=== PATIENT | male | born 1950 | race Caucasian/White ===

== ENCOUNTER → 2021-02-07 10:45 | Outpatient (BNVA) | payer MEDICARE, SELFPAY | PROVIDERS: PCP Internal Medicine; Visit Provider Hospitalist | DX: J45.909 Unspecified asthma, uncomplicated (principal); J43.9 Emphysema, unspecified; R06.00 Dyspnea, unspecified; R09.89 Other specified symptoms and signs involving the circulatory and respiratory systems; Z85.118 Personal history of other malignant neoplasm of bronchus and lung; Z79.899 Other long term (current) drug therapy | CPT/HCPCS: 99202 ==

== ENCOUNTER 2021-03-07 09:48 | Outpatient (REF) | payer MEDICARE, SELFPAY ==
--- NOTE | 2021-03-07 | PFT_ITS ---
FLOWS: FEV1 108% of predicted at 3.26 L. FVC 105% of predicted at 4.39 L. FEV1 to FVC ratio of 0.74. No bronchodilator response. LUNG VOLUMES: Total lung capacity 97% of predicted at 6.68 L. Residual volume 95% of predicted at 2.33 L. Slow vital capacity 99% of predicted at 4.35 L. Expiratory reserve volume 42% of predicted at 0.51 L. Diffusion capacity is mildly decreased, diffusion capacity corrects to normal after adjustment for alveolar ventilation. IMPRESSION: No obstructive or restrictive ventilatory defect. No bronchodilator response. Decreased expiratory reserve volume suggests extrathoracic restriction likely secondary to abdominal obesity. Sameer Holliday MD AP/MODL / [id number]
== END 2021-03-07 09:49 | disposition home or self-care (01) ==
LOC: HO.RESP 09:48
PROVIDERS: PCP Internal Medicine; Visit Provider Hospitalist
DX: R06.00 Dyspnea, unspecified (principal)
CPT/HCPCS: 94060; 94727; 94729

== ENCOUNTER → 2021-03-21 10:12 | Outpatient (BNVA) | payer MEDICARE, SELFPAY | PROVIDERS: PCP Internal Medicine; Visit Provider Hospitalist | DX: J45.909 Unspecified asthma, uncomplicated (principal); J43.9 Emphysema, unspecified; R06.00 Dyspnea, unspecified; R09.89 Other specified symptoms and signs involving the circulatory and respiratory systems | CPT/HCPCS: 99212 ==

== ENCOUNTER → 2022-02-07 10:42 | Outpatient (BNVA) | payer MEDICARE, SELFPAY | PROVIDERS: PCP Family Medicine; Visit Provider Hospitalist | DX: J45.909 Unspecified asthma, uncomplicated (principal); J43.9 Emphysema, unspecified; R06.00 Dyspnea, unspecified; R09.89 Other specified symptoms and signs involving the circulatory and respiratory systems | CPT/HCPCS: 99212 ==

== ENCOUNTER 2023-02-12 10:35 | Outpatient (REF) | payer MEDICARE, SELFPAY ==
--- NOTE | 2023-02-12 11:46 | PFT_ITS ---
INDICATIONS: Emphysema. SPIROMETRY: FEV1 to FVC of 68% with an FEV1 of 3.06 L, which is 106% predicted and an FVC of 4.51 L, which is 101% predicted. No significant response to bronchodilators noted. Maximum voluntary ventilation is 66% predicted. LUNG VOLUMES: Total lung capacity 86% predicted with an expiratory reserve volume of 84% predicted. DIFFUSION CAPACITY: DLCO of 79% predicted. COMPARISONS: None. INTERPRETATION: There is an obstructive ventilatory defect, consistent of mild COPD. No significant response to bronchodilators noted. Mild decrease in maximum voluntary ventilation secondary to likely deconditioning. Lungs volumes are within normal limits. The patient also has a mild diffusion impairment, clinical correlation warranted. Denzel Alvarez MD MR/MODL / [id number]
== END 2023-02-12 10:36 | disposition home or self-care (01) ==
LOC: HO.RESP 10:35
PROVIDERS: PCP Family Medicine; Visit Provider Hospitalist
DX: J43.9 Emphysema, unspecified (principal)
CPT/HCPCS: 94010; 94727; 94729

== ENCOUNTER → 2023-02-12 11:46 | Outpatient (BNV) | payer MEDICARE, SELFPAY | PROVIDERS: PCP Family Medicine; Visit Provider Hospitalist | DX: J43.9 Emphysema, unspecified (principal) | CPT/HCPCS: 94060; 94727; 94729 ==

== ENCOUNTER 2023-02-20 10:52 | Outpatient (AMB) | payer MEDICARE, SELFPAY ==
[2023-02-20 11:02] VITALS: BP 118/70; PULSE 64; O2SAT 95; BMI 30.9
--- NOTE | 2023-02-20 11:02 | A.OFFVIS_ITS ---
Intake Vital Signs 02/20/23 11:02 Height 5 ft 9 in Weight 209 lb 7.026 oz BMI 30.9 BP 118/70 Blood Pressure Location Lt brachial Position Sitting Pulse 64 Pulse Source Pulse Oximeter Pulse Oximetry (%) 95 Oxygen Delivery Method Room Air Intake Visit Reasons: COPD Buffet Attendant Required: No Allergies No Known Allergies Allergy (Verified 02/20/23 11:05) HPI HPI Comments History of Present Illness Details The patient is a 72-year-old gentleman with a known history of lung cancer status post right lower lobe resection back in 2019. the patient had surgery with curative intent. He is followed closely by [facility] thoracic surgery. In the meantime he has developed worsening dyspnea on exertion. Moderate severity. He does uses rescue inhaler with good effect. He does use it a couple times a day. Initially, he was placed on Anoro which she felt was helpful. But, then it seemed to stop helping and Started to feel worse on the medication. So therefore he stopped it. His last pulmonary function studies were from November of 2018. I personally reviewed them. It appears that he has a reversible obstruction with significant response to bronchodilators and significant small airways disease suggesting of hyperreactive airways in a diagnosis of asthma. In addition to that I did review his CT scan of the chest last done back in June 2020 demonstrating paraseptal emphysema in the post operative changes. On examination the patient did have some crackles actually on the left side. We did go briefly on walking oximetry. The patient was able to maintain a Pulse ox in the low 90s. Heart rate was stable. The patient did not qualify for oxygen. 02/07/2022 the patient is here for a pul monary follow-up visit. He continues to do well. Does complaint of dyspnea on exertion. Had been on Trelegy for little bit of time but did not see any significant improvement. He she has been using his rescue inhaler as needed. Sometimes he needs it once a day and sometimes not at all. He is comfortable right now using his inhaler. Denies any palpitations or tremulousness. In addition to that he did have a CT scan of the chest last back in June of 2021 at [facility]. We did review the CT scan. He does have some reticular changes in some emphysema moderate amount. Likely related to smoking-related lung disease. He quit smoking many years ago although he was smoking about 5 packs a day at his worse. The patient had a CT scan of the chest again demonstrating stable 4 mm pulmonary nodule right on the fissure on the right side. He did have a right lower lobe lobectomy and his lobes expanded well feeling in the space well. No new findings noted. He is scheduled to have a repeat CT scan June of 2022 and will follow-up with thoracic surgery. Therefore he will follow-up with me sometime in the fall 2022 will do a pulmonary function study to see if he needs additional respiratory medications at that time. 02/20/2023 the patient is here for a pul monary follow-up visit. Overall doing well. Does complaint of dyspnea on exertion mild in severity also complains of shortness of breath when leaning forward. Denies any cough or wheezing. Does have some chest congestion at times. He has a rescue inhaler but he has not had to use it. We did review his PFTs that he just had demonstrating mild COPD but otherwise lung capacity is good in view of having had a lung resection for lung cancer in addition to the fact that he smoked a significant amount for many years. He does have emphysema on the CT scan. We did review the CT scan that he had back in June 2022 and we also compared to the CT scan that he had back in June 2021. The emphysema is moderate and mainly subpleural paraseptal. He has pulmonary nodule in the right hemithorax that is monitored and has not changed. He also has some evidence of interstitial disease some scarring primarily at the lower lung zones left more than right. [facility] Medical History (Updated 02/20/23 @ 19:38 by Denzel Alvarez MD) Chest crackles Dyspnea Lung cancer Emphysema lung Asthma Social History (Updated 03/21/21 @ 10:19 by USHA Alvarez) Patient Tobacco Use Status: Former Tobacco user Tobacco use type: Cigarette Years Smoked: 30 years Review of Systems Const Denies night sweats ENT Denies change in voice, Denies lip swelling, Denies mouth pain, Reports nasal congestion, Reports nasal discharge and Denies tongue swelling Card Denies chest pain and Reports dyspnea on exertion Resp Reports cough and Reports dyspnea on exertion GI Denies abdominal pain Musc Denies no additional complaints Neuro Denies Neuro-related abnormal movements Psych Denies no additional complaints Timothy/Lymph Denies easy bleeding and Denies lymphadenopathy Aller/Immun Denies lip swelling and Denies tongue swelling Physical Exam Vital Signs: Last Vital Signs Pulse 64 02/20/23 11:02 BP 118/70 02/20/23 11:02 Pulse Ox 95 02/20/23 11:02 Oxygen Delivery Method Room Air 02/20/23 11:02 BMI result Body Mass Index 30.9 Const General: alert Neck Neck: Yes normal visual inspection, Yes full ROM and Yes no lymphadenopathy Chest Chest palpation & inspection: normal inspection of the chest Resp Effort & Inspection: normal respiratory effort Auscultation: crackles on the left at the base and diminished lung sounds Cardio Rate: regular rate Rhythm: regular rhythm Heart sounds: S1 normal heart sound present and S2 normal heart sound present GI Palpation (GI): Soft to palpation and nontender Auscultation: normal bowel sounds Skin General skin exam: rashes and/or lesions noted Assessment & Plan Assessment & Plan (1) Emphysema lung: Comment: Mild COPD Code(s): J43.9 - Emphysema, unspecified Qualifiers: Emphysema type: centrilobular Qualified Code(s): J43.2 - Centrilobular emphysema (2) Dyspnea: Code(s): R06.00 - Dyspnea, unspecified Qualifiers: Dyspnea type: dyspnea on exertion Qualified Code(s): R06.09 - Other forms of dyspnea Plan: Multifactorial (3) Chest crackles: Comment: minimal basilar fibrotic changes, stable Code(s): R09.89 - Other specified symptoms and signs involving the circulatory and respiratory systems Plan ALONDRA as needed weight management and exercise regimen repeat CT scan of the chest June 2023 [place] [place] lung cancer follow up [place] [facility] [place]/U 1 yr Coding Level of Care Code Est Pt Level 4 (77857) Diagnoses Centrilobular emphysema J43.2 Emphysema type: centrilobular Dyspnea on exertion R06.09 Dyspnea type: dyspnea on exertion Chest crackles R09.89 Time Spent (min) 17
== END 2023-02-20 11:31 | disposition home or self-care (01) ==
PROVIDERS: PCP Family Medicine; Visit Provider Hospitalist
DX: J43.2 Centrilobular emphysema (principal); R06.09 Other forms of dyspnea; R09.89 Other specified symptoms and signs involving the circulatory and respiratory systems
CPT/HCPCS: 99214

== ENCOUNTER → 2023-02-20 10:52 | Outpatient (BNVA) | payer MEDICARE, SELFPAY | PROVIDERS: PCP Family Medicine; Visit Provider Hospitalist | DX: J43.2 Centrilobular emphysema (principal); R06.09 Other forms of dyspnea; R09.89 Other specified symptoms and signs involving the circulatory and respiratory systems | CPT/HCPCS: 99212 ==

== ENCOUNTER 2024-06-05 13:36 | Outpatient (AMB) | payer MEDICARE, SELFPAY ==
[2024-06-05 13:40] VITALS: BP 106/68; PULSE 68; O2SAT 96; BMI 31.4
--- NOTE | 2024-06-05 13:40 | MHC.OFFVIS ---
Vital Signs 06/05/24 13:40 Height 5 ft 9 in Weight 212 lb 11.937 oz BMI 31.4 BP 106/68 Blood Pressure Location Rt brachial Position Sitting Pulse 68 Pulse Source Pulse Oximeter Pulse Oximetry (%) 96 Oxygen Delivery Method Room Air Intake Visit Reasons: asthma Allergies No Known Allergies Allergy (Verified 06/05/24 13:45) HPI Comments Details: The patient is a 74-year-old gentleman with a known history of lung cancer status post right lower lobe resection back in 2019. the patient had surgery with curative intent. He is followed closely by [facility] thoracic surgery. In the meantime he has developed worsening dyspnea on exertion. Moderate severity. He does uses rescue inhaler with good effect. He does use it a couple times a day. Initially, he was placed on Anoro which she felt was helpful. But, then it seemed to stop helping and Started to feel worse on the medication. So therefore he stopped it. His last pulmonary function studies were from November of 2018. I personally reviewed them. It appears that he has a reversible obstruction with significant response to bronchodilators and significant small airways disease suggesting of hyperreactive airways in a diagnosis of asthma. In addition to that I did review his CT scan of the chest last done back in June 2020 demonstrating paraseptal emphysema in the postoperative changes. On examination the patient did have some crackles actually on the left side. We did go briefly on walking oximetry. The patient was able to maintain a Pulse ox in the low 90s. Heart rate was stable. The patient did not qualify for oxygen. 02/07/2022 the patient is here for a pulmonary follow-up visit. He continues to do well. Does complaint of dyspnea on exertion. Had been on Trelegy for little bit of time but did not see any significant improvement. He she has been using his rescue inhaler as needed. Sometimes he needs it once a day and sometimes not at all. He is comfortable right now using his inhaler. Denies any palpitations or tremulousness. In addition to that he did have a CT scan of the chest last back in June of 2021 at [facility]. We did review the CT scan. He does have some reticular changes in some emphysema moderate amount. Likely related to smoking-related lung disease. He quit smoking many years ago although he was smoking about 5 packs a day at his worse. The patient had a CT scan of the chest again demonstrating stable 4 mm pulmonary nodule right on the fissure on the right side. He did have a right lower lobe lobectomy and his lobes expanded well feeling in the space well. No new findings noted. He is scheduled to have a repeat CT scan June of 2022 and will follow-up with thoracic surgery. Therefore he will follow-up with me sometime in the fall of 2022 will do a pulmonary function study to see if he needs additional respiratory medications at that time. 02/20/2023 the patient is here for a pulmonary follow-up visit. Overall doing well. Does complaint of dyspnea on exertion mild in severity also complains of shortness of breath when leaning forward. Denies any cough or wheezing. Does have some chest congestion at times. He has a rescue inhaler but he has not had to use it. We did review his PFTs that he just had demonstrating mild COPD but otherwise lung capacity is good in view of having had a lung resection for lung cancer in addition to the fact that he smoked a significant amount for many years. He does have emphysema on the CT scan. We did review the CT scan that he had back in June 2022 and we also compared to the CT scan that he had back in June 2021. The emphysema is moderate and mainly subpleural paraseptal. He has pulmonary nodule in the right hemithorax that is monitored and has not changed. He also has some evidence of interstitial disease some scarring primarily at the lower lung zones left more than right. 06/05/2024 the patient is here for a pulmonary follow-up visit. Overall he is doing okay. He does complaint of productive cough chest congestion at times. [id number] severity. In addition to this he did developed a respiratory illness sometime early this year. He was given a course of antibiotics and prednisone. After that he felt a lot better. Now he is doing much better. He is concerned though that his symptoms are going to reoccur. Also he is complaining about daytime drowsiness. He does have a history sleep apnea although he did not uses CPAP back at that time. Patient subsequently wanted to consider a hypoglossal nerve stimulator so he started the process. But was felt not to be the best option for the patient. He does have underlying cardiovascular risk factors and significant daytime drowsiness with an [place] score of 11/24. Therefore, I did request her sleep study and I did review with the patient demonstrating moderate to severe sleep apnea. Also a REM related sleep disorder with his apneas significantly worsened during REM. The patient needs to start CPAP at this time. Will go ahead and order the machine for him to start using. In the meantime will also start him on a maintenance inhaler to help with the chronic bronchitis. If the inhaler does not work he can always call. [facility] Medical History (Updated 06/05/24 @ 22:02 by Denzel Alvarez MD) MOHIT (obstructive sleep apnea) Chest crackles Dyspnea Lung cancer Emphysema lung Asthma Social History Patient Tobacco Use Status: Former Tobacco user Tobacco use type: Cigarette Years Smoked: 30 years Review of Systems Const Reports daytime sleepiness, Reports difficulty sleeping, Denies night sweats and Reports snoring ENT Denies change in voice, Denies lip swelling, Denies mouth pain, Reports nasal congestion, Reports nasal discharge and Denies tongue swelling Card Denies chest pain and Reports dyspnea on exertion Resp Reports chest congestion, Reports cough, Reports dyspnea on exertion, Reports snoring and Reports wheezing GI Denies abdominal pain Musc Denies no additional complaints Neuro Denies Neuro-related abnormal movements Psych Denies no additional complaints Timothy/Lymph Denies easy bleeding and Denies lymphadenopathy Aller/Immun Denies lip swelling, Denies tongue swelling and Reports wheezing Physical Exam Vital Signs: Last Vital Signs Pulse 68 06/05/24 13:40 BP 106/68 06/05/24 13:40 Pulse Ox 96 06/05/24 13:40 Oxygen Delivery Method Room Air 06/05/24 13:40 BMI result Body Mass Index 31.4 Const General: alert Neck Neck: Yes normal visual inspection, Yes full ROM and Yes no lymphadenopathy Chest Chest palpation & inspection: normal inspection of the chest Resp Effort & Inspection: normal respiratory effort Auscultation: diminished lung sounds Cardio Rate: regular rate Rhythm: regular rhythm Heart sounds: S1 normal heart sound present and S2 normal heart sound present GI Palpation (GI): Soft to palpation and nontender Auscultation: normal bowel sounds Skin General skin exam: rashes and/or lesions noted Assessment & Plan Assessment & Plan (1) Emphysema lung: Comment: Mild COPD Code(s): J43.9 - Emphysema, unspecified Category: Medical Qualifiers: Emphysema type: centrilobular Qualified Code(s): J43.2 - Centrilobular emphysema (2) Dyspnea: Code(s): R06.00 - Dyspnea, unspecified Category: Medical Qualifiers: Dyspnea type: dyspnea on exertion Qualified Code(s): R06.09 - Other forms of dyspnea Plan: Multifactorial (3) MOHIT (obstructive sleep apnea): Code(s): G47.33 - Obstructive sleep apnea (adult) (pediatric) Category: Medical Plan ALONDRA as needed Start Symbicort start APAP weight management and exercise regimen repeat CT scan of the chest June 2024([facility] [place] lung cancer follow up at [facility] [place] F/U 3-4 months Medications: New budesonide-formoterol 160-4.5 mcg/actuation (Symbicort) 2 puffs inhalation BID 10.2 grams 11RF 30 days J44.89 - Other specified chronic obstructive pulmonary disease Coding Level of Care Code Est Pt Level 4 (73156) Diagnoses Centrilobular emphysema J43.2 Emphysema type: centrilobular Dyspnea on exertion R06.09 Dyspnea type: dyspnea on exertion MOHIT (obstructive sleep apnea) G47.33 Time Spent (min) 18
--- OUTSIDE RECORDS SUMMARY | 2024-06-05 13:44 | XMS_ITS | Clinical Summary ---
Author Organization [facility] Address [address] [facility] [address] [place] [address] Phone Care Team Providers Care Sow Farm Manager Name Role Phone Teagan Keating MD Primary Care Provider [phone] Allergies No known active allergies Medications omega-3 (FISH OIL) 1000 MG capsule Take 1,000 mg by mouth 1 (one) time each day 03/27/2017 Active Thiamine HCl (Vitamin B1) 100 MG tablet Take 1 tablet by mouth 1 (one) time each day 10/27/2005 Active tiZANidine (ZANAFLEX) 4 MG tablet Take 4 mg by mouth every night 11/12/2020 Active docusate sodium (COLACE) 100 MG capsule Take 100 mg by mouth in the morning and 100 mg in the evening. 05/15/2018 Active aspirin (ST LENA) 81 MG EC tablet Take 81 mg by mouth 1 (one) time each day 03/27/2017 Active testosterone (ANDROGEL) 50 MG/5GM (1%) gel Place on the skin daily Active potassium chloride (MICRO-K) 10 MEQ CR capsule Take 10 mEq by mouth 1 (one) time each day 07/20/2021 Active albuterol HFA (PROVENTIL HFA;VENTOLIN HFA) 108 (90 Base) MCG/ACT inhaler Inhale 2 puffs every 6 (six) hours if needed 05/14/2020 Active buPROPion SR (WELLBUTRIN SR) 150 MG 12 hr tablet Take 150 mg by mouth in the morning and 150 mg in the evening. Active atorvastatin (LIPITOR) 40 MG tablet Take 40 mg by mouth 1 (one) time each day 10/05/2020 Active amLODIPine (NORVASC) 5 MG tablet Take 5 mg by mouth in the morning and 5 mg in the evening. 10/05/2020 Active chlorthalidone 25 MG tablet Take 25 mg by mouth 1 (one) time each day 25 mg on even days & 12.5 mg on odd days 07/20/2021 Active metoprolol succinate XL (TOPROL-XL) 100 MG 24 hr tablet Take 100 mg by mouth in the morning. Active tadalafil (CIALIS) 5 MG tablet Take 5 mg by mouth 1 (one) time each day 11/15/2021 Active alfuzosin (UROXATRAL) 10 MG 24 hr tablet Take 10 mg by mouth 1 (one) time each day 11/15/2021 Active Active Problems Problem Noted Date Diagnosed Date Chronic kidney disease stage 3 02/15/2022 Coronary arteriosclerosis 02/15/2022 Gout, not otherwise specified 02/15/2022 Hypertension 02/15/2022 Obstructive sleep apnea syndrome 02/15/2022 Chronic obstructive pulmonary disease 02/15/2022 Dyslipidemia 02/15/2022 Squamous cell carcinoma of right lung 07/24/2018 Family History Medical History Relation Comments Depression Father Hyperlipidemia Father Stroke Father Cancer Mother Relation Status Comments Father Mother Social History Tobacco Use Types Packs/Day Years Used Date Smoking Tobacco: Never Smokeless Tobacco: Never Tobacco Cessation:Counseling Given: Not Answered Alcohol Use Standard Drinks/Week Comments Yes 0 (1 standard drink = 0.6 oz pur e alcohol) occasionally Sex and Gender Information Value Date Recorded Sex Assigned at Not on file Legal Sex Male 3:40 PM EDT Gender Identity Not on file Sexual Orientation Not on file Last Filed Vital Signs Vital Sign Reading Time Taken Comments Blood Pressure 188/76 02/19/2023 10:56 AM EDT Pulse 62 02/19/2023 10:56 AM EDT Temperature - - Respiratory Rate - - Oxygen Saturation 94% 02/19/2023 10:56 AM EDT Inhaled Oxygen Concentration - - Weight 93.9 kg (207 lb) 02/19/2023 10:56 AM EDT Height 176.5 cm (5' 9.5 ) 02/19/2023 10:56 AM ED T Body Mass Index 30.13 02/19/2023 10:56 AM EDT Plan of Treatment Health Maintenance Due Date Last Done Comments Pneumococcal Vaccine: 65+ Ye ars (2 of 2 - PPSV23 or PCV20) 03/19/2019 01/22/2019 Influenza Vaccine (#1) 2023 Hepatitis B Vaccine Aged Out No longe r eligible based on patient's age to complete this topic Insurance [facility] P[facility] BLUE([id number]) [facility] P[facility] BLUE([id number]) Care Teams Sow Farm Manager Relationship Specialty Start Date End Date Teagan Keating MD [address] [place] [id number] PCP - General Family Medicine 11/23/21
--- OUTSIDE RECORDS SUMMARY | 2024-06-05 13:44 | XMS_ITS | Clinical Summary ---
Author Organization [facility] Address [phone] [facility] [place] [address] Care Team Providers Care Budget Consultant Name Role Phone Delonte Estevez MD Primary Care Provider Unavailable Philip Hernández MD Unavailable Tonya Finch MD Unavailable Allergies No known active allergies Medications Medication Sig Dispensed Refills Start Date End Date Status metoprolol succinate (TOPROL-XL) 100 MG 24 hr tablet Take 100 mg by mouth daily. Active amLODIPine (NORVASC) 5 MG tablet Take 5 mg by mouth daily. Active simvastatin (ZOCOR) 80 MG tablet Take 80 mg by mouth nightly at bedtime. Active buPROPion (WELLBUTRIN SR) 150 MG SR 12 hr tablet Take 150 mg by mouth 2 (two) times a day. Active aspirin 81 mg chewable tablet Take 81 mg by mouth daily. Active albuterol 90 mcg/actuation inhaler Inhale 2 puffs into the lungs every 6 (six) hours as needed for wheezing. Active polyethylene glycol (MIRALAX) 17 gram/dose powder Take 17 g by mouth daily. Active coenzyme Q10 200 mg capsule Take 200 mg by mouth daily. Active B-complex with vitamin C Cap Take 1 capsule by mouth daily. Active testosterone (TESTIM) 50 mg/5 gram (1 %) transdermal gel tube Place 50 mg of testosterone onto the skin daily. Active Active Problems Problem Noted Date Diagnosed Date Squamous cell carcinoma of right lung 07/24/2018 Other emphysema 07/24/2018 Family History Medical History Relation Comments Diabetes Brother Heart disease Father Stroke Father Breast cancer Mother Lung cancer Mother Relation Status Comments Brother Alive Father Mother Social History Tobacco Use Types Packs/Day Years Used Date Smoking Tobacco: Former Cigarettes 3 10 0 04/25/1975 - 04/25/1985 Smokeless Tobacco: Former Snuff Alcohol Use Standard Drinks/Week Comments Yes 1 (1 standard drink = 0.6 oz pur e alcohol) Social Education Answer Date Recorded Are you interested in more education? Not on sonya e 09/03/2022 Are you concerned about learning? Not on file 09/03/2022 No 09/03/2022 No 09/03/2022 Digital Access Answer Date Recorded No 09/17/2022 No 09/17/2022 No 09/17/2022 Reliable internet access at home? Not on file 09/17/2022 Device with a working camera? Not on file Sex and Gender Information Value Date Recorded Sex Assigned at Not on file Gender Identity Not on file Sexual Orientation Not on file Last Filed Vital Signs Vital Sign Reading Time Taken Comments Blood Pressure 106/83 07/24/2018 2:00 PM EDT Pulse 66 07/24/2018 2:00 PM EDT Temperature 36.9 ??C (98.5 ??F) 07/24/2018 2:00 PM ED T Respiratory Rate 17 07/24/2018 2:00 PM EDT Oxygen Saturation 93% 07/24/2018 2:00 PM EDT Inhaled Oxygen Concentration - - Weight 93.1 kg (205 lb 4 oz) 07/24/2018 2:00 PM EDT Height 173.5 cm (5' 8.31 ) 07/24/2018 2:00 PM ED T DFCI Body Mass Index 30.93 07/24/2018 2:00 PM EDT Plan of Treatment Health Maintenance Due Date Last Done Comments Adult Td,Tdap Booster 1948 LIPID PANEL 1948 DEPRESSION SCREENING 1960 SMOKING Hx and SMOKELESS TOBACCO SCREENING 1961 HEPATITIS B SCREENING 1966 HEPATITIS C SCREENING 1966 COLOGUARD 1993 COLONOSCOPY 1993 COLORECTAL CANCER SCREENING 1993 FIT TEST 1993 FOBT 1993 SIGMOIDOSCOPY 1993 VIRTUAL COLONOSCOPY 1993 ZOSTER VACCINES (1 of 2) 06/12/2017 04/17/2017 PNEUMOCOCCAL VACCINES (50+ years) (2 of 2 - PPSV23) 03/19/2019 01/22/2019 RSV VACCINE (1 - 1-dose 75+ series) 2023 INFLUENZA VACCINE (#1) 2023 9, 04/17/2017, 04/03/2016, Additional history exists COVID-19 VACCINE (3 - season) 2023 06/04/2020, 05/14/2020 HEPATITIS A VACCINES Aged Out No long er eligible based on patient's age to complete this topic HEPATITIS B VACCINES Aged Out No long er eligible based on patient's age to complete this topic HIB VACCINES Aged Out No longer eligi ble based on patient's age to complete this topic MENINGOCOCCAL VACCINES (ACWY) Aged Out No longer eligible based on patient's age to complete this topic Medical Devices Not on file Care Teams Budget Consultant Relationship Specialty Start Date End Date Delonte Estevez MD PCP - General Internal Medicine 07/17/18 Philip Hernández MD [address] [place] [address] [email or web address] 07/24/18 Tonya Finch MD [address] [place] [address] Thoracic Surgery 07/24/18 Additional Source Comments The information contained in this document represents components of the legal health record. It is not the complete legal health record.[facility]
--- OUTSIDE RECORDS SUMMARY | 2024-06-05 13:44 | XMS_ITS | Encounter Summary ---
Author Organization [facility], Address [address] [place] [address] Phone Care Team Providers Care Spiritual Advisor Name Role Phone Teagan Keating MD Primary Care Provider [phone] Encounter Details Date Type Department Care Team (Late st Contact Info) Description 11/23/2021 Documentation Only [facility], [address] [place] [address] Teagan Keating MD [address] [place] [address] Social History Tobacco Use Types Packs/Day Years Used Date Smoking Tobacco: Never Assessed Sex and Gender Information Value Date Recorded Sex Assigned at Not on file Legal Sex Male 3:40 PM EDT Gender Identity Not on file Sexual Orientation Not on file documented as of this encounter Plan of Treatment Not on file documented as of this encounter Visit Diagnoses Not on filedocumented in this encounter Care Teams Spiritual Advisor Relationship Specialty Start Date End Date Teagan Keating MD [address] [place] [address] PCP - General Family Medicine 11/23/21 documented as of this encounter
== END 2024-06-05 14:25 | disposition home or self-care (01) ==
PROVIDERS: PCP Family Medicine; Visit Provider Hospitalist
DX: J43.2 Centrilobular emphysema (principal); R06.09 Other forms of dyspnea; G47.33 Obstructive sleep apnea (adult) (pediatric)
CPT/HCPCS: 99214

== ENCOUNTER → 2024-06-05 13:36 | Outpatient (BNVA) | payer MEDICARE, SELFPAY | PROVIDERS: PCP Family Medicine; Visit Provider Hospitalist | DX: J43.2 Centrilobular emphysema (principal); R06.09 Other forms of dyspnea; G47.33 Obstructive sleep apnea (adult) (pediatric) | CPT/HCPCS: 99212 ==

== ENCOUNTER 2024-09-29 13:49 | Outpatient (AMB) | payer MEDICARE, SELFPAY ==
--- NOTE | 2024-09-29 13:50 | MHC.OFFVIS ---
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 the patient had surgery with curative intent. He is followed closely by [facility] thoracic surgery. In the meantime he has developed worsening dyspnea on exertion. Moderate severity. He does uses rescue inhaler with good effect. He does use it a couple times a day. Initially, he was placed on Anoro which she felt was helpful. But, then it seemed to stop helping and Started to feel worse on the medication. So therefore he stopped it. His last pulmonary function studies were from November of 2018. I personally reviewed them. It appears that he has a reversible obstruction with significant response to bronchodilators and significant small airways disease suggesting of hyperreactive airways in a diagnosis of asthma. In addition to that I did review his CT scan of the chest last done back in June 2020 demonstrating paraseptal emphysema in the postoperative changes. On examination the patient did have some crackles actually on the left side. We did go briefly on walking oximetry. The patient was able to maintain a Pulse ox in the low 90s. Heart rate was stable. The patient did not qualify for oxygen. 02/07/2022 the patient is here for a pulmonary follow-up visit. He continues to do well. Does complaint of dyspnea on exertion. Had been on Trelegy for little bit of time but did not see any significant improvement. He she has been using his rescue inhaler as needed. Sometimes he needs it once a day and sometimes not at all. He is comfortable right now using his inhaler. Denies any palpitations or tremulousness. In addition to that he did have a CT scan of the chest last back in June of 2021 at [facility]. We did review the CT scan. He does have some reticular changes in some emphysema moderate amount. Likely related to smoking-related lung disease. He quit smoking many years ago although he was smoking about 5 packs a day at his worse. The patient had a CT scan of the chest again demonstrating stable 4 mm pulmonary nodule right on the fissure on the right side. He did have a right lower lobe lobectomy and his lobes expanded well feeling in the space well. No new findings noted. He is scheduled to have a repeat CT scan June of 2022 and will follow-up with thoracic surgery. Therefore he will follow-up with me sometime in the fall of 2022 will do a pulmonary function study to see if he needs additional respiratory medications at that time. 02/20/2023 the patient is here for a pulmonary follow-up visit. Overall doing well. Does complaint of dyspnea on exertion mild in severity also complains of shortness of breath when leaning forward. Denies any cough or wheezing. Does have some chest congestion at times. He has a rescue inhaler but he has not had to use it. We did review his PFTs that he just had demonstrating mild COPD but otherwise lung capacity is good in view of having had a lung resection for lung cancer in addition to the fact that he smoked a significant amount for many years. He does have emphysema on the CT scan. We did review the CT scan that he had back in June 2022 and we also compared to the CT scan that he had back in June 2021. The emphysema is moderate and mainly subpleural paraseptal. He has pulmonary nodule in the right hemithorax that is monitored and has not changed. He also has some evidence of interstitial disease some scarring primarily at the lower lung zones left more than right. 06/05/2024 the patient is here for a pulmonary follow-up visit. Overall he is doing okay. He does complaint of productive cough chest congestion at times. [id number] severity. In addition to this he did developed a respiratory illness sometime early this year. He was given a course of antibiotics and prednisone. After that he felt a lot better. Now he is doing much better. He is concerned though that his symptoms are going to reoccur. Also he is complaining about daytime drowsiness. He does have a history sleep apnea although he did not uses CPAP back at that time. Patient subsequently wanted to consider a hypoglossal nerve stimulator so he started the process. But was felt not to be the best option for the patient. He does have underlying cardiovascular risk factors and significant daytime drowsiness with an Rimrock score of 11/24. Therefore, I did request her sleep study and I did review with the patient demonstrating moderate to severe sleep apnea. Also a REM related sleep disorder with his apneas significantly worsened during REM. The patient needs to start CPAP at this time. Will go ahead and order the machine for him to start using. In the meantime will also start him on a maintenance inhaler to help with the chronic bronchitis. If the inhaler does not work he can always call. 09/29/2024 the patient is here for pulmonary follow-up visit. Overall he is doing well. He has been using the CPAP and has been affecting beneficial. He does try to use it more than 4 hours a night. Sometimes he does have to get up because of his back aching has to go to the recliner and he sometimes stops taking it then. But he has been noticing that he has been helping him a significant amount. His AHI is down to 4.6 which is still lightly elevated. His average pressure is 14. Therefore, will going to go ahead and adjust his machine to go up to 16 2 8-18. Also adjust the humidity. He was having some issues with air leakage but once he change the mask back to the F 40 large he has been doing a lot better. He will continue it for now. From a respiratory status he seems to be doing better with the Symbicort and the albuterol. His cough congestion is improved. And also the patient did have a CT scan of the chest sometime in 07/10/2024 at [facility] with no evidence of any recurrence cancer which is reassuring. Overall the patient is doing well he also had recently a cardiac evaluation. He is having issues with his blood pressure is going a little bit low. 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 He has also been losing weight on Zepbound. [facility] Medical History (Updated 06/05/24 @ 22:02 by Denzel Alvarez MD) MOHIT (obstructive sleep apnea) Chest crackles Dyspnea Lung cancer Emphysema lung Asthma Social History Patient Tobacco Use Status: Former Tobacco user Tobacco use type: Cigarette Years Smoked: 30 years Review of Systems Const Reports difficulty sleeping and Denies night sweats ENT Denies change in voice, Denies lip swelling, Denies mouth pain, Reports nasal congestion, Reports nasal discharge and Denies tongue swelling Card Denies chest pain and Reports dyspnea on exertion Resp Denies chest congestion, Denies cough, Reports dyspnea on exertion and Denies wheezing GI Denies abdominal pain Musc Denies no additional complaints Neuro Denies Neuro-related abnormal movements Psych Denies no additional complaints Timothy/Lymph Denies easy bleeding and Denies lymphadenopathy Aller/Immun Denies lip swelling, Denies tongue swelling and Denies wheezing Physical Exam Vital Signs: Last Vital Signs Pulse 77 09/29/24 13:51 BP 100/52 L 09/29/24 13:51 Pulse Ox 97 09/29/24 13:51 Oxygen Delivery Method Room Air 09/29/24 13:51 BMI result Body Mass Index 28.3 Const General: alert Neck Neck: Yes normal visual inspection, Yes full ROM and Yes no lymphadenopathy Chest Chest palpation & inspection: normal inspection of the chest Resp Effort & Inspection: normal respiratory effort Auscultation: clear to auscultation bilaterally Cardio Rate: regular rate Rhythm: regular rhythm Heart sounds: S1 normal heart sound present and S2 normal heart sound present GI Palpation (GI): Soft to palpation and nontender Auscultation: normal bowel sounds Skin General skin exam: rashes and/or lesions noted Assessment & Plan Assessment & Plan (1) Emphysema lung: Comment: Mild COPD Code(s): J43.9 - Emphysema, unspecified Category: Medical Qualifiers: Emphysema type: centrilobular Qualified Code(s): J43.2 - Centrilobular emphysema (2) Dyspnea: Code(s): R06.00 - Dyspnea, unspecified Category: Medical Qualifiers: Dyspnea type: dyspnea on exertion Qualified Code(s): R06.09 - Other forms of dyspnea Plan: Multifactorial (3) MOHIT (obstructive sleep apnea): Code(s): G47.33 - Obstructive sleep apnea (adult) (pediatric) Category: Medical Plan ALONDRA as needed continue Symbicort continue APAP adjusted 8-18, F40 Large weight management and exercise regimen repeat CT scan of the chest June 2024([facility] every 6 months lung cancer follow up at [facility] F/U June 2025 Coding Level of Care Code Est Pt Level 4 (97402) Complex EM visit Add On G2211 Diagnoses Centrilobular emphysema J43.2 Emphysema type: centrilobular Dyspnea on exertion R06.09 Dyspnea type: dyspnea on exertion MOHIT (obstructive sleep apnea) G47.33 Time Spent (min) 18
[2024-09-29 13:51] VITALS: BP 100/52; PULSE 77; O2SAT 97; BMI 28.3
== END 2024-09-29 14:25 | disposition home or self-care (01) ==
LOC: HO.HPS 13:50
PROVIDERS: PCP Family Medicine; Visit Provider Hospitalist
DX: J43.2 Centrilobular emphysema (principal); R06.09 Other forms of dyspnea; G47.33 Obstructive sleep apnea (adult) (pediatric)
CPT/HCPCS: 99214; G2211

== ENCOUNTER → 2024-09-29 13:49 | Outpatient (BNVA) | payer MEDICARE, SELFPAY | PROVIDERS: PCP Family Medicine; Visit Provider Hospitalist | DX: J43.2 Centrilobular emphysema (principal); R06.09 Other forms of dyspnea; G47.33 Obstructive sleep apnea (adult) (pediatric); Z85.118 Personal history of other malignant neoplasm of bronchus and lung; Z99.89 Dependence on other enabling machines and devices | CPT/HCPCS: 99212 ==